=== PATIENT | male | born 1985 | race Caucasian/White ===

== ENCOUNTER 2020-08-27 09:53 | Emergency (ER) | payer OTHER, SELFPAY ==
[2020-08-27 10:01] VITALS: BP 164/99; PULSE 81; RESP 16; TEMP 36.6; O2SAT 98
--- NOTE | 2020-08-27 10:01 | ED.ANIMALBIT ---
HPI - Animal Bite General Chief Complaint: Animal Bite Stated Complaint: dog bites Time Seen by Provider: 08/27/20 10:02 Source: patient and RN notes reviewed Mode of arrival: ambulatory Limitations: no limitations History of Present Illness HPI narrative: 35 old male presents concern for possible infected dog bite. Reports on Tuesday he was bitten by a dog on his left hand and right forearm. Reports the wound on the left hand has become red, swollen, and has drainage. He denies any decreased function in hand, decreased range of motion, sensation, strength. Denies any intervention. complaint: animal bite Related Data Allergies Allergy/AdvReac Type Severity Reaction Status Date / Time No Known Allergies Allergy Verified 11/09/16 21:54 Review of Systems Review of Systems: Narrative: CONSTITUTIONAL: Denies malaise, chills, sweats, or fever. CARDIOVASCULAR: Denies chest pain, palpitations, or edema. RESPIRATORY: Denies cough or dyspnea. SKIN: Reports wound on the dorsal aspect of the left hand with redness, swelling, drainage MUSCULOSKELETAL: Denies muscle-skeletal pain NEUROLOGIC: Denies numbness, weakness All systems reviewed & are unremarkable except as noted in HPI and below PMFSH Comments At time of signature, agree with nursing past medical, surgical, social and family history. There is no relevant family history pertinent to the presenting complaint Exam Narrative: Exam Narrative: GENERAL: Well-appearing, well-nourished, and in no acute distress. HEAD: Normocephalic EYES: PERRLA, conjunctivae clear NECK: Supple. CHEST: Speaks in full sentences. No respiratory distress. HEART: Regular rate and rhythm. Normal and equal peripheral pulses. EXTREMITIES: Left hand and digits of hand have normal strength and sensation. 5/5 strength with digit flexion, extension. Range of motion normal. No clubbing, cyanosis noted. Normal digital cascade with flexion of fingers, median, ulnar and radial nerve intact. Normal sensation of each side of finger. Can perform 'okay' sign, 'cross over finger test of index and middle fingers' and 'thumbs up' sign. No scissoring. Normal thumb opposition. Good capillary refill and radial pulse. Distal capillary refill less than 3 seconds. SKIN: Warn, dry, intact, pink. 1 cm scab with serosanguineous drainage noted to the dorsal aspect of the left hand surrounded by approximately 4 cm of erythema, edema, no induration noted. No streaking noted NEURO: Alert and oriented x3. PSYCH: Normal mood and affect Course Course Emergency Course: Patient is aware of diagnosis, understands and agrees to treatment plan. Anticipatory guidance given. Patient agrees to follow-up as directed and is aware of reasons to seek care at the emergency department. Portions of this record may have been created with voice recognition software Vital Signs Vital signs: Vital Signs Temperature 98 F 08/27/20 10:01 Pulse Rate 81 08/27/20 10:01 Respiratory Rate 16 08/27/20 10:01 Blood Pressure 164/99 H 08/27/20 10:01 Pulse Oximetry 98 08/27/20 10:01 Temperature 98 F 08/27/20 10:01 Pulse Rate 81 08/27/20 10:01 Respiratory Rate 16 08/27/20 10:01 Blood Pressure 164/99 H 08/27/20 10:01 Pulse Oximetry 98 08/27/20 10:01 Reviewed. Pt has been instructed to follow up with his primary care provider within the next week regarding his elevated blood pressure today. MDM - Animal Bite MDM Narrative Medical decision making narrative: Exam findings show no acute concerns or changes; patient is non-toxic appearing and is in no distress. Patient is appropriate for outpatient treatment and follow-up. Differential Diagnosis Differential diagnosis: Likely bite by animal, dog bite and rabies contact Critical Care Time Critical Care Time Critical Care Time: No Discharge Plan Discharge Clinical Impression: Infected dog bite of hand Qualifiers: Encounter type: initial encounter Laterality: left Qualified Cod
== END 2020-08-27 10:18 | disposition home or self-care (01) ==
PROVIDERS: Emergency Provider Nurse Practitioner
DX: L08.9 Local infection of the skin and subcutaneous tissue, unspecified (principal); S61.452A Open bite of left hand, initial encounter; W54.0XXA Bitten by dog, initial encounter
CPT/HCPCS: 99203; G0463